=== PATIENT | female | born 1995 | race African-American/Black ===

== ENCOUNTER 2017-07-17 20:58 | Emergency (ER) | payer BC ==
[2017-07-17] MEDS ORDERED: Ondansetron ODT TAB* 4 MG PO ONE (21:39)
[2017-07-17 21:42] VITALS: BP 113/58
[2017-07-17] MEDS ORDERED: Amoxicillin PO (*) 500 MG CAP PO ONE (21:59)
[2017-07-17] MEDS ORDERED: Ibuprofen TAB* 600 MG PO ONE (22:01)
--- NOTE | 2017-07-17 22:06 | UC ---
Ear Complaint HPI - HPI Summary HPI Summary: ear pain for the past few days, throat is sore two, is having chills - History of Current Complaint Chief Complaint: UCEar Stated Complaint: EAR PAIN Time Seen by Provider: 07/17/17 21:35 Hx Obtained From: Patient ?: No Onset/Duration: Sudden Onset, Lasting Days Severity Initially: Moderate Severity Currently: Severe Pain Intensity: 8 Associated Signs/Symptoms: Positive: URI Symptoms - Allergies/Home Medications Allergies/Adverse Reactions: Allergies Allergy/AdvReac Type Severity Reaction Status Date / Time No Known Allergies Allergy Verified 07/17/17 21:42 Home Medications: Home Medications NK [No Home Medications Reported] 07/17/17 [History Confirmed 07/17/17] PMH/Surg Hx/FS Hx/Imm Hx Previously Healthy: Yes - Surgical History Surgical History: None - Family History Known Family History: Positive: Hypertension - Social History Alcohol Use: Occasionally Substance Use Type: None Smoking Status (MU): Never Smoked Tobacco Review of Systems Constitutional: Chills, Fatigue Skin: Negative Eyes: Negative ENT: Sore Throat, Ear Ache Respiratory: Cough Cardiovascular: Negative Gastrointestinal: Negative Genitourinary: Negative Motor: Negative Neurovascular: Negative Musculoskeletal: Negative Neurological: Headache Psychological: Negative Is Patient Immunocompromised?: No All Other Systems Reviewed And Are Negative: Yes Physical Exam Triage Information Reviewed: Yes Appearance: Ill-Appearing, Pain Distress Vital Signs: Initial Vital Signs Temp 99.6 F 07/17/17 21:33 Pulse 71 07/17/17 21:33 Resp 16 07/17/17 21:33 BP 113/58 07/17/17 21:33 Pulse Ox 100 07/17/17 21:33 Vital Signs Reviewed: Yes Eye Exam: Normal ENT Exam: Normal ENT: Positive: Pharyngeal erythema, TMs normal, TM bulging, TM dull, TM red - left Dental Exam: Normal Neck exam: Normal Neck: Positive: Supple, Nontender, No Lymphadenopathy Respiratory Exam: Normal Respiratory: Positive: Chest non-tender, Lungs clear, Normal breath sounds Cardiovascular Exam: Normal Cardiovascular: Positive: RRR, No Murmur, Pulses Normal Abdominal Exam: Normal Abdomen Description: Positive: Nontender, No Organomegaly, Soft Bowel Sounds: Positive: Present Musculoskeletal Exam: Normal Musculoskeletal: Positive: Strength Intact, ROM Intact, No Edema Neurological Exam: Normal Neurological: Positive: Alert, Muscle Tone Normal Psychological Exam: Normal Skin Exam: Normal Ear Complaint Course/Dx - Course Course Of Treatment: hx obtained, exam performed ,meds reviewed, treated for otitis media - Differential Dx/Diagnosis Differential Diagnosis/HQI/PQRI: Otitis Externa, Otitis Media, URI Provider Diagnoses: left otitis media Discharge - Discharge Plan Condition: Stable Disposition: HOME Patient Education Materials: Ear Infection (ED) Referrals: Non Staff,Doctor [Primary Care Provider] - Additional Instructions: 1. take the medication as prescribed. 2. continue with ibuprofen for pain and fever 3. Warm compresses to the ear and follow up as needed.
== END 2017-07-17 22:17 | disposition home or self-care (01) ==
LOC: UCCORT 20:58
DX: H66.92 Otitis media, unspecified, left ear (principal)
CPT/HCPCS: 99202; A9270-GY; G0463

== ENCOUNTER 2018-01-24 21:11 | Emergency (ER) | payer BC ==
[2018-01-24 21:42] VITALS: BP 115/73
--- NOTE | 2018-01-24 21:42 | UC ---
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 She has a history of otitis externa in the past and states that she has not been putting anything in her ear. There is a persistent irritation that has been worsening. No bleeding or drainage. No fever or pain behind the ear. No sore throat. - History of Current Complaint Stated Complaint: L EAR COMPLAINT Time Seen by Provider: 01/24/18 21:27 Hx Obtained From: Patient - Allergies/Home Medications Allergies/Adverse Reactions: Allergies Allergy/AdvReac Type Severity Reaction Status Date / Time No Known Allergies Allergy Verified 07/17/17 21:42 PMH/Surg Hx/FS Hx/Imm Hx - Additional Past Medical History Additional PMH: Otitis externa last semester Previously Healthy: Yes - Surgical History Surgical History: None - Family History Known Family History: Positive: Hypertension - Social History Occupation: Student Alcohol Use: Occasionally Substance Use Type: None Smoking Status (MU): Never Smoked Tobacco Review of Systems Constitutional: Negative Skin: Negative Eyes: Negative ENT: Ear Ache Respiratory: Negative All Other Systems Reviewed And Are Negative: Yes Physical Exam Triage Information Reviewed: Yes Appearance: Well-Appearing, No Pain Distress, Well-Nourished Vital Signs Reviewed: Yes Eyes: Positive: Conjunctiva Clear ENT: Positive: TMs normal, Other - now erythema or pain with movement of the left pinna. There is a large hard appearing piece of cerumen partially occluding the canal. No canal edema or exudate. Neck: Positive: Supple, Nontender Respiratory: Positive: Lungs clear Cardiovascular: Positive: RRR Neurological: Positive: Alert Skin Exam: Normal Procedures - Procedure Summary Procedure Summary: Ear irrigation: The left ear was irrigated with 30 cc of warm water. A large ball of cerumen was removed intact. The canal was reexamined and found to have no exudate or swelling. There is no bleeding. The TM was clear. Her pain was relieved with this. She tolerated it well without complication. Ear Complaint Course/Dx - Course Course Of Treatment: Pain relieved after irrigation out of partial cerumen impaction - Differential Dx/Diagnosis Provider Diagnoses: Cerumen impaction left ear. Left ear pain Discharge - Sign-Out/Discharge Documenting (check all that apply): Patient Departure All imaging exams completed and their final reports reviewed: No Studies - Discharge Plan Condition: Improved Disposition: HOME Patient Education Materials: Cerumen Impaction (ED) Referrals: [facility] [Outside] Additional Instructions: Tylenol or ibuprofen as needed for discomfort. Ear wax softeners can be obtained [id number] from the pharmacy. Use as needed. Return if worse, and ear pain, fever, new symptoms or other concerns. - Billing Disposition and Condition Condition: IMPROVED Disposition: Home - Attestation Statements Document Initiated by Scribe: No
== END 2018-01-24 21:47 | disposition home or self-care (01) ==
LOC: UCCORT 21:11
DX: H92.02 Otalgia, left ear (principal); H61.22 Impacted cerumen, left ear
CPT/HCPCS: 99211; G0463

== ENCOUNTER 2018-03-01 19:57 | Emergency (ER) | payer BC ==
[2018-03-01 21:06] VITALS: BP 130/69
[2018-03-01] MEDS ORDERED: Ibuprofen TAB* 600 MG PO ONE (21:12)
[2018-03-01] MEDS ORDERED: Neomyc/Polym/HC 1% OTIC SUSP* **OTIC LEFT EAR ONE (21:28)
[2018-03-01] MEDS ORDERED: Amoxicillin/Clavulanate TAB* 875 MG PO ONE (21:28)
--- NOTE | 2018-03-01 21:31 | UC ---
UC General HPI - HPI Summary HPI Summary: Patient states she been experiencing intermittent pain in her left ear for about 3 weeks. She states that she was seen a couple weeks ago by the [facility] and treated with amoxicillin. She states that she took it for just a few days and then her ear felt better so she stopped taking it. She presents tonight for recurrent left ear pain for the past 3 days. She denies any history of injury or drainage from the ear. She denies any associated fever and upper respiratory infection area - History of Current Complaint Chief Complaint: UCEar Stated Complaint: EAR PAIN Time Seen by Provider: 03/01/18 21:19 Hx Obtained From: Patient Pain Intensity: 10 Alleviating: nothing Associated Signs & Symptoms: Negative: Fever, Headache - Allergy/Home Medications Allergies/Adverse Reactions: Allergies Allergy/AdvReac Type Severity Reaction Status Date / Time No Known Allergies Allergy Verified 03/01/18 20:59 Home Medications: Home Medications Antibiotic Unknown 1 tab PO DAILY 03/01/18 [History Confirmed 03/01/18] PMH/Surg Hx/FS Hx/Imm Hx Previously Healthy: Yes - Surgical History Surgical History: Yes Surgery Procedure, Year, and Place: liposuction 12/2017 - Family History Known Family History: Positive: Hypertension, Diabetes - Social History Occupation: Student Lives: Dormitory/Roommates Alcohol Use: Occasionally Substance Use Type: None Smoking Status (MU): Never Smoked Tobacco - Immunization History Hx Tetanus, Diphtheria Vaccination: Yes Vaccination Up to Date: Yes Review of Systems Constitutional: Negative Skin: Negative Eyes: Negative ENT: Ear Ache - left Respiratory: Negative Cardiovascular: Negative Gastrointestinal: Negative Genitourinary: Negative Motor: Negative Neurovascular: Negative Musculoskeletal: Negative Neurological: Negative Psychological: Negative Is Patient Immunocompromised?: No All Other Systems Reviewed And Are Negative: Yes Physical Exam Triage Information Reviewed: Yes Appearance: Well-Appearing Vital Signs: Initial Vital Signs Temp 98.7 F 03/01/18 21:01 Pulse 85 03/01/18 21:01 Resp 14 03/01/18 21:01 BP 130/69 03/01/18 21:01 Pulse Ox 100 03/01/18 21:01 Vital Signs Reviewed: Yes Eyes: Positive: Conjunctiva Clear ENT: Positive: Pharynx normal, TMs normal - R. L mildly dull and L canal with erythema. No pre-or postauricular adenopathy or mastoid tenderness.. Negative : Nasal congestion, Nasal drainage Neck: Positive: Supple, Nontender, No Lymphadenopathy Respiratory: Positive: Lungs clear, Normal breath sounds Cardiovascular: Positive: RRR, No Murmur Abdomen Description: Positive: Nontender, No Organomegaly, Soft Bowel Sounds: Positive: Present Musculoskeletal: Positive: ROM Intact Neurological: Positive: Alert Psychological: Positive: Age Appropriate Behavior Skin Exam: Normal Skin: Negative: rashes Course/Dx - Course Course Of Treatment: He noticed that in the triage note patient reports thinking that she had been treated with Zithromax; however, she tells me that she believes it was amoxicillin. Also, she admits to not completing her course of treatment. During her stay explain to her the importance of completing treatment as directed and the importance of being able to identify the medications. Since patient may have failed treatment on amoxicillin and Zithromax is not a first line choice, I'm going to treat her with Augmentin due to the dull tympanic membrane which could be a partially treated otitis media. I'm also going to treat her with Cortisporin otic drops given the erythema to the canal consistent with an otitis externa. Need for follow-up and recheck stressed. - Differential Dx - Multi-Symptom Provider Diagnoses: otalgia L ear. L OM. L OE. Discharge - Sign-Out/Discharge Documenting (check all that apply): Patient Departure All imaging exams completed and their final reports reviewed: No Studies - Discharge Plan Condition: Stable Disposition: HOME Prescriptions: Amoxicillin/Clavulanate TAB* [Augmentin TAB 875*] 875 mg PO BID 7 Days #14 tab Patient Education Materials: Earache (ED) Forms: *School Release Referrals: [facility] [Outside] - 7 Days Additional Instructions: use the cortisporin ear drops, 4 drops left ear 3x's daily for 7 days. - Billing Disposition and Condition Condition: STABLE Disposition: Home
== END 2018-03-01 21:51 | disposition home or self-care (01) ==
LOC: UCCORT 19:57
DX: H66.92 Otitis media, unspecified, left ear (principal); H60.92 Unspecified otitis externa, left ear
CPT/HCPCS: 99213; A9270-GY; G0463